=== PATIENT | male | born 1980 | race African-American/Black ===

== ENCOUNTER 2016-12-08 21:06 | Emergency (ER) | payer SELFPAY ==
[2016-12-08 22:05] VITALS: BP 148/85
--- NOTE | 2016-12-08 22:50 | PHYS DOC ---
Adult General Chief Complaint Chief Complaint: KNEE INJURY HPI HPI Patient is a 36 year old male presents to the emergency department stating that he had fallen off of a ladder approximately 8 foot on Friday. Patient states he's been having increased right knee pain and discomfort. His been taken Tylenol for the pain and discomfort with minimal relief. Denies any numbness or tingling down into his feet. Patient denies any further pain or complaints at this time. He denies foot pain hip pain or back pain. Review of Systems Review of Systems Constitutional: Denies fever or chills [] Eyes: Denies change in visual acuity, redness, or eye pain [] HENT: Denies nasal congestion or sore throat [] Respiratory: Denies cough or shortness of breath [] Cardiovascular: No additional information not addressed in HPI [] GI: Denies abdominal pain, nausea, vomiting, bloody stools or diarrhea [] : Denies dysuria or hematuria [] Musculoskeletal: Denies back pain right knee pain complaint Integument: Denies rash or skin lesions [] Neurologic: Denies headache, focal weakness or sensory changes [] Endocrine: Denies polyuria or polydipsia [] Current Medications Current Medications Current Medications Medications (Trade) Dose Ordered Sig/Frieda Start Time Stop Time Status Last Admin Dose Admin Ibuprofen (Motrin) 800 mg 1X ONCE 12/08/16 23:00 12/08/16 23:01 DC 12/08/16 23:06 800 MG Allergies Allergies Allergies Coded Allergies Type Severity Reaction Last Updated Verified No Known Drug Allergies 12/08/16 No Physical Exam Physical Exam Constitutional: Well developed, well nourished, no acute distress, non-toxic appearance. [] HENT: Normocephalic, atraumatic, bilateral external ears normal, oropharynx moist, no oral exudates, nose normal. [] Eyes: PERRLA, EOMI, conjunctiva normal, no discharge. [] Neck: Normal range of motion, no tenderness, supple, no stridor. [] Cardiovascular:Heart rate regular rhythm Lungs & Thorax: No respiratory distress noted Skin: Warm, dry, no erythema, no rash. [] Back: No cervical spine, thoracic spine or lumbar spine tenderness, no crepitus no deformities no step-offs noted. Extremities: Right lateral knee tenderness, no cyanosis, no clubbing, ROM intact , no edema. No tenderness noted in the lower leg. No lower back tenderness noted Neurologic: Alert and oriented X 3, normal motor function, normal sensory function, no focal deficits noted. [] Psychologic: Affect normal, judgement normal, mood normal. [] Current Patient Data Vital Signs Vital Signs Date Time Temp Pulse Resp B/P (MAP) Pulse Ox O2 Delivery O2 Flow Rate FiO2 12/08/16 22:05 98.2 56 18 99 Room Air 98.2 EKG EKG [] Radiology/Procedures Radiology/Procedures [] Course & Med Decision Making Course & Med Decision Making Pertinent Labs and Imaging studies reviewed. (See chart for details) X-rays were negative for any bony abnormalities for the knee as well as the calcaneus. Patient continues to deny any lower back pain or discomfort. He'll be discharged home in stable condition with recommendations for Tylenol or ibuprofen for pain and discomfort elevation as much as possible. He'll be placed in a knee immobilizer. He'll be provided with orthopedic name and number to follow up with. Patient agrees with discharge instructions, treatment regimens and follow-up recommendations. All questions and concerns been answered at patient's bedside. [] Dragon Disclaimer Dragon Disclaimer This electronic medical record was generated, in whole or in part, using a voice recognition dictation system. Departure Departure Impression: Primary Impression: Fall Additional Impression: Knee pain, acute Disposition: 01 HOME, SELF-CARE Condition: STABLE Referrals: UNKNOWN PCP NAME (PCP) DANG COELHO II, MD Patient Instructions: Fall Prevention and Home Safety, [id number], Knee Pain , [id number] Additional Instructions: Activity as tolerated Tylenol or Ibuprofen for pain and discomfort Ice packs on 20 minutes and off 20 minutes several times a day Elevation as much as possible Wear the knee immobilizer until you followup with orthopedic Followup with orthopedic in 3-5 days Return to emergency department as needed for signs and symptoms that become worse. Problem Qualifiers Primary Impression: Fall Encounter type: initial encounter Qualified Codes: W19.XXXA - Unspecified fall, initial encounter Additional Impression: Knee pain, acute Laterality: right Qualified Codes: M25.561 - Pain in right knee SUZANNE CREWS APRN Dec 08, 2016 22:49
[2016-12-08] MEDS ORDERED: IBUPROFEN 800 MG TABLET. PO ONE (23:00)
--- NOTE | 2016-12-09 07:59 | RAD ---
Right knee with patella, 12/08/2016: History: Fall off ladder No fracture or dislocation is identified. There is mild subcutaneous edema. IMPRESSION: No acute bony abnormality is detected.
--- NOTE | 2016-12-09 08:00 | RAD ---
Right calcaneus, 2 views, 12/08/2016: History: Fall, pain No acute fracture is identified. There is moderate spurring at the midfoot level. There is moderate subcutaneous edema. IMPRESSION: No acute bony abnormality is detected.
== END 2016-12-08 23:31 | disposition home or self-care (01) ==
LOC: ER 21:06
DX: M25.561 Pain in right knee (principal); W11.XXXA Fall on and from ladder, initial encounter; Y93.89 Activity, other specified; Y92.89 Other specified places as the place of occurrence of the external cause; Y99.8 Other external cause status
CPT/HCPCS: 29505; 73564; 73650; 99284-25